=== PATIENT | female | born 1965 | race Caucasian/White ===

== ENCOUNTER 2021-11-12 12:48 | Inpatient (IN) | payer MEDICARE, OTHER ==
[2021-11-12] MEDS ORDERED: cefTRIAXone\\ROCEPHIN 2 GM VIAL IVPB SCH (17:45)
[2021-11-12] MEDS ORDERED: Albuterol 200 PUFF (6.7GM INHALER) INH PRN (18:15)
[2021-11-12] MEDS: Acetaminophen/Codeine 30-300mg Tablet PO SCH (19:50)
[2021-11-12] MEDS ORDERED: traZODone HCl 50 MG TAB PO SCH (21:00)
[2021-11-12] MEDS ORDERED: HumaLOG 300 UNITS/3 ML VIAL SC PRN ×2 (21:30)
[2021-11-12] MEDS ORDERED: Dextrose 5% in Water 1,000 ML IV PRN ×2 (21:30→23:00)
[2021-11-12] MEDS ORDERED: Dextrose 50% Abboject 50 ML SYRINGE IVP PRN ×2 (21:30→23:00)
[2021-11-12] MEDS: Atorvastatin Calcium 40 MG TAB PO SCH (22:00)
[2021-11-12] MEDS: Cyclobenzaprine 10 MG TAB PO PRN (22:00)
[2021-11-12] MEDS: Carvedilol 12.5 MG TAB PO SCH (22:00)
[2021-11-12] MEDS ORDERED: Acetaminophen/Codeine 30-300mg Tablet PO SCH (23:59)
[2021-11-13] MEDS: Acetaminophen/Codeine 30-300mg Tablet PO SCH ×2 (00:27→05:58)
[2021-11-13] MEDS ORDERED: Spironolactone 25 MG TAB PO SCH (08:00)
[2021-11-13] MEDS: Gabapentin 300 MG CAP PO SCH ×2 (08:41→20:47)
[2021-11-13] MEDS: FLUoxetine HCl 20 MG CAP PO SCH (08:41)
[2021-11-13] MEDS: Ezetimibe 10 MG TAB PO SCH (08:45)
[2021-11-13] MEDS: Spironolactone 25 MG TAB PO SCH (08:46)
[2021-11-13] MEDS: Aspirin Chewable 81 MG TAB PO SCH (08:46)
[2021-11-13] MEDS: Ferrous Sulfate 325 MG TAB PO SCH (08:46)
[2021-11-13] MEDS: Famotidine 20 MG TAB PO SCH ×2 (08:46→20:45)
[2021-11-13] MEDS: Clopidogrel Bisulfate 75 MG TAB PO SCH (08:46)
[2021-11-13] MEDS: hydrALAZINE 25 MG TAB PO SCH ×3 (08:46→20:45)
[2021-11-13] MEDS: Carvedilol 12.5 MG TAB PO SCH ×2 (08:48→20:45)
[2021-11-13] MEDS: EPOETIN ALFA-EPBX (ESRD) 10,000 UNIT/ML VIAL SC SCH (09:02)
[2021-11-13] MEDS: Lantus 1000 UNITS/10 ML VIAL SC SCH (09:02)
[2021-11-13 09:16] LABS: Hemoglobin 7.9 g/dL (12.0-16.0); Mean Corpuscular HGB CONC 32.2 g/dL (32.0-36.0); Mean Corpuscular Hemoglobin 31.1 pg (27.0-31.0); Mean Corpuscular Volume 96.7 fL (78.0-98.0); Mean Platelet Volume 7.9 fL (7.4-10.4); Platelet Count 271 thou/uL (130-400); RBC Distribution Width 15.4 % (11.5-14.5); Red Blood Cell (RBC) Count 2.53 mill/uL (4.20-5.40); White Blood Cell (WBC) Count 9.5 thou/uL (4.8-10.8)
[2021-11-13 09:19] LABS: Anion Gap 16 mmol/L (10-20); BUN (Urea Nitrogen) 29 mg/dL (9.8-20.1); Calc. Creatinine Clearance 68 mL/min (70-130); Calcium 8.9 mg/dL (7.8-10.44); Carbon Dioxide 22 mmol/L (22-29); Chloride 108 mmol/L (98-107); Glucose 120 mg/dL (70-105); Potassium 4.5 mmol/L (3.5-5.1); Sodium 141 mmol/L (136-145)
[2021-11-13] MEDS ORDERED: Morphine 4 MG/ML VIAL ONE (09:20)
[2021-11-13] MEDS ORDERED: Acetaminophen/Codeine 30-300mg Tablet PO PRN (10:16)
[2021-11-13] MEDS ORDERED: metroNIDAZOLE 250 MG TAB PO SCH (12:30)
[2021-11-13] MEDS: cefTRIAXone\\ROCEPHIN 2 GM in Sodium Chloride 0.9% 100 ML IVPB SCH (16:12)
[2021-11-13] MEDS: HYDROcodone/Acetaminophen 5/325 mg Tablet PO PRN ×2 (16:20→20:47)
[2021-11-13] MEDS: metroNIDAZOLE 250 MG TAB PO SCH (20:44)
[2021-11-13] MEDS: Atorvastatin Calcium 40 MG TAB PO SCH (20:45)
[2021-11-13] MEDS: traZODone HCl 50 MG TAB PO SCH (23:10)
[2021-11-13] MEDS: Clotrimazole 1% Cream 15 GM TUBE TOP SCH (23:45)
[2021-11-14] MEDS: metroNIDAZOLE 250 MG TAB PO SCH ×2 (08:28→21:02)
[2021-11-14] MEDS: Ferrous Sulfate 325 MG TAB PO SCH (08:28)
[2021-11-14] MEDS: Aspirin Chewable 81 MG TAB PO SCH (08:28)
[2021-11-14] MEDS: Spironolactone 25 MG TAB PO SCH (08:29)
[2021-11-14] MEDS: hydrALAZINE 25 MG TAB PO SCH ×3 (08:29→21:03)
[2021-11-14] MEDS: Gabapentin 300 MG CAP PO SCH ×2 (08:30→21:04)
[2021-11-14] MEDS: FLUoxetine HCl 20 MG CAP PO SCH (08:30)
[2021-11-14] MEDS: Carvedilol 12.5 MG TAB PO SCH ×2 (08:30→21:03)
[2021-11-14] MEDS: Lantus 1000 UNITS/10 ML VIAL SC SCH (08:31)
[2021-11-14] MEDS: Clotrimazole 1% Cream 15 GM TUBE TOP SCH ×2 (08:31→21:06)
[2021-11-14] MEDS: Ezetimibe 10 MG TAB PO SCH (08:31)
[2021-11-14] MEDS: Clopidogrel Bisulfate 75 MG TAB PO SCH (08:31)
[2021-11-14] MEDS: Famotidine 20 MG TAB PO SCH (08:31)
[2021-11-14] MEDS: HYDROcodone/Acetaminophen 5/325 mg Tablet PO PRN ×2 (14:38→21:23)
[2021-11-14] MEDS ORDERED: Loperamide HCl 2 MG CAP PO SCH (15:45)
[2021-11-14] MEDS: cefTRIAXone\\ROCEPHIN 2 GM in Sodium Chloride 0.9% 100 ML IVPB SCH (16:48)
[2021-11-14] MEDS: Atorvastatin Calcium 40 MG TAB PO SCH (21:03)
[2021-11-14] MEDS: traZODone HCl 50 MG TAB PO SCH (21:03)
[2021-11-15] MEDS: Lantus 1000 UNITS/10 ML VIAL SC SCH (09:04)
[2021-11-15] MEDS: Spironolactone 25 MG TAB PO SCH (09:04)
[2021-11-15] MEDS: FLUoxetine HCl 20 MG CAP PO SCH (09:04)
[2021-11-15] MEDS: Carvedilol 12.5 MG TAB PO SCH ×2 (09:05→20:22)
[2021-11-15] MEDS: Ezetimibe 10 MG TAB PO SCH (09:05)
[2021-11-15] MEDS: Famotidine 20 MG TAB PO SCH (09:05)
[2021-11-15] MEDS: metroNIDAZOLE 250 MG TAB PO SCH ×2 (09:05→20:21)
[2021-11-15] MEDS: hydrALAZINE 25 MG TAB PO SCH ×3 (09:05→20:20)
[2021-11-15] MEDS: Gabapentin 300 MG CAP PO SCH ×2 (09:06→20:20)
[2021-11-15] MEDS: Clopidogrel Bisulfate 75 MG TAB PO SCH (09:06)
[2021-11-15] MEDS: Aspirin Chewable 81 MG TAB PO SCH (09:06)
[2021-11-15] MEDS: Ferrous Sulfate 325 MG TAB PO SCH (09:06)
[2021-11-15] MEDS: Clotrimazole 1% Cream 15 GM TUBE TOP SCH ×2 (09:07→20:38)
[2021-11-15 09:31] LABS: Hemoglobin 8.7 g/dL (12.0-16.0); Mean Corpuscular HGB CONC 32.8 g/dL (32.0-36.0); Mean Corpuscular Hemoglobin 32.4 pg (27.0-31.0); Mean Corpuscular Volume 98.7 fL (78.0-98.0); Mean Platelet Volume 8.4 fL (7.4-10.4); Platelet Count 327 thou/uL (130-400); RBC Distribution Width 16.4 % (11.5-14.5); Red Blood Cell (RBC) Count 2.68 mill/uL (4.20-5.40); White Blood Cell (WBC) Count 10.2 thou/uL (4.8-10.8)
[2021-11-15 09:40] LABS: Anion Gap 17 mmol/L (10-20); BUN (Urea Nitrogen) 24 mg/dL (9.8-20.1); Calc. Creatinine Clearance 56 mL/min (70-130); Calcium 8.8 mg/dL (7.8-10.44); Carbon Dioxide 21 mmol/L (22-29); Chloride 108 mmol/L (98-107); Glucose 175 mg/dL (70-105); Potassium 4.7 mmol/L (3.5-5.1); Sodium 141 mmol/L (136-145)
[2021-11-15] MEDS: Morphine 4 MG/ML VIAL SLOW IVP PRN (10:55)
[2021-11-15] MEDS ORDERED: HumaLOG 300 UNITS/3 ML VIAL ONE (11:57)
[2021-11-15] MEDS: HumaLOG 300 UNITS/3 ML VIAL SC PRN ×2 (12:13→17:16)
[2021-11-15] MEDS: HYDROcodone/Acetaminophen 5/325 mg Tablet PO PRN ×2 (14:34→20:22)
[2021-11-15] MEDS: cefTRIAXone\\ROCEPHIN 2 GM in Sodium Chloride 0.9% 100 ML IVPB SCH (17:11)
[2021-11-15] MEDS: traZODone HCl 50 MG TAB PO SCH (20:20)
[2021-11-15] MEDS: Loperamide HCl 2 MG CAP PO PRN (20:23)
[2021-11-15] MEDS: Atorvastatin Calcium 40 MG TAB PO SCH (20:26)
[2021-11-16] MEDS: Ferrous Sulfate 325 MG TAB PO SCH (09:46)
[2021-11-16] MEDS: Ezetimibe 10 MG TAB PO SCH (09:48)
[2021-11-16] MEDS: Aspirin Chewable 81 MG TAB PO SCH (09:48)
[2021-11-16] MEDS: Spironolactone 25 MG TAB PO SCH (09:48)
[2021-11-16] MEDS: Carvedilol 12.5 MG TAB PO SCH ×2 (09:48→20:58)
[2021-11-16] MEDS: hydrALAZINE 25 MG TAB PO SCH ×3 (09:48→20:57)
[2021-11-16] MEDS: metroNIDAZOLE 250 MG TAB PO SCH ×2 (09:49→20:58)
[2021-11-16] MEDS: Gabapentin 300 MG CAP PO SCH ×2 (09:49→20:58)
[2021-11-16] MEDS: Clopidogrel Bisulfate 75 MG TAB PO SCH (09:50)
[2021-11-16] MEDS: Clotrimazole 1% Cream 15 GM TUBE TOP SCH ×2 (09:50→21:15)
[2021-11-16] MEDS: Famotidine 20 MG TAB PO SCH (09:50)
[2021-11-16] MEDS: Lantus 1000 UNITS/10 ML VIAL SC SCH (09:50)
[2021-11-16] MEDS: FLUoxetine HCl 20 MG CAP PO SCH (09:50)
[2021-11-16] MEDS: Loperamide HCl 2 MG CAP PO PRN ×2 (11:10→14:40)
[2021-11-16] MEDS: HumaLOG 300 UNITS/3 ML VIAL SC PRN (13:53)
[2021-11-16] MEDS: HYDROcodone/Acetaminophen 5/325 mg Tablet PO PRN ×2 (16:08→20:59)
[2021-11-16] MEDS ORDERED: traZODone HCl 50 MG TAB PO PRN (18:23)
[2021-11-16] MEDS: cefTRIAXone\\ROCEPHIN 2 GM in Sodium Chloride 0.9% 100 ML IVPB SCH (18:37)
[2021-11-16] MEDS: Atorvastatin Calcium 40 MG TAB PO SCH (20:57)
[2021-11-17] MEDS: HYDROcodone/Acetaminophen 5/325 mg Tablet PO PRN ×2 (03:54→21:27)
[2021-11-17] MEDS: Carvedilol 12.5 MG TAB PO SCH ×2 (08:05→21:21)
[2021-11-17] MEDS: Spironolactone 25 MG TAB PO SCH (08:05)
[2021-11-17] MEDS: Ferrous Sulfate 325 MG TAB PO SCH (08:05)
[2021-11-17] MEDS: Aspirin Chewable 81 MG TAB PO SCH (08:05)
[2021-11-17] MEDS: Clopidogrel Bisulfate 75 MG TAB PO SCH (08:06)
[2021-11-17] MEDS: Ezetimibe 10 MG TAB PO SCH (08:07)
[2021-11-17] MEDS: Clotrimazole 1% Cream 15 GM TUBE TOP SCH ×2 (08:07→21:32)
[2021-11-17] MEDS: Gabapentin 300 MG CAP PO SCH ×2 (08:07→21:22)
[2021-11-17] MEDS: Famotidine 20 MG TAB PO SCH (08:07)
[2021-11-17] MEDS: FLUoxetine HCl 20 MG CAP PO SCH (08:07)
[2021-11-17] MEDS: hydrALAZINE 25 MG TAB PO SCH ×3 (08:08→21:21)
[2021-11-17] MEDS: Lantus 1000 UNITS/10 ML VIAL SC SCH (08:08)
[2021-11-17] MEDS: metroNIDAZOLE 250 MG TAB PO SCH ×2 (08:10→21:21)
[2021-11-17] MEDS: Morphine 4 MG/ML VIAL SLOW IVP PRN (10:58)
[2021-11-17] MEDS: cefTRIAXone\\ROCEPHIN 2 GM in Sodium Chloride 0.9% 100 ML IVPB SCH (17:04)
[2021-11-17] MEDS: HumaLOG 300 UNITS/3 ML VIAL SC PRN (17:11)
[2021-11-17] MEDS: Atorvastatin Calcium 40 MG TAB PO SCH (21:20)
[2021-11-17] MEDS: Torsemide 20 MG TAB PO PRN (21:20)
[2021-11-17] MEDS: Loperamide HCl 2 MG CAP PO PRN (21:22)
[2021-11-17] MEDS ORDERED: Mag-Al Plus 1200 MG/1200 MG/120 MG/30 ML UDCUP PO PRN (23:17)
[2021-11-17] MEDS ORDERED: Ondansetron ODT 4 MG TAB PO PRN (23:18)
[2021-11-18] MEDS: HYDROcodone/Acetaminophen 5/325 mg Tablet PO PRN ×3 (01:47→21:33)
[2021-11-18] MEDS: Gabapentin 300 MG CAP PO SCH ×2 (08:18→21:34)
[2021-11-18] MEDS: Ferrous Sulfate 325 MG TAB PO SCH (08:18)
[2021-11-18] MEDS: metroNIDAZOLE 250 MG TAB PO SCH ×2 (08:18→21:31)
[2021-11-18] MEDS: hydrALAZINE 25 MG TAB PO SCH ×3 (08:19→21:31)
[2021-11-18] MEDS: Carvedilol 12.5 MG TAB PO SCH ×2 (08:19→21:34)
[2021-11-18] MEDS: Famotidine 20 MG TAB PO SCH (08:19)
[2021-11-18] MEDS: Ezetimibe 10 MG TAB PO SCH (08:19)
[2021-11-18] MEDS: Spironolactone 25 MG TAB PO SCH (08:19)
[2021-11-18] MEDS: FLUoxetine HCl 20 MG CAP PO SCH (08:19)
[2021-11-18] MEDS: Lantus 1000 UNITS/10 ML VIAL SC SCH (08:21)
[2021-11-18] MEDS: Aspirin Chewable 81 MG TAB PO SCH (08:22)
[2021-11-18] MEDS: Clotrimazole 1% Cream 15 GM TUBE TOP SCH ×2 (08:22→21:40)
[2021-11-18] MEDS: Clopidogrel Bisulfate 75 MG TAB PO SCH (08:22)
[2021-11-18] MEDS: HumaLOG 300 UNITS/3 ML VIAL SC PRN ×2 (12:09→17:34)
[2021-11-18] MEDS: cefTRIAXone\\ROCEPHIN 2 GM in Sodium Chloride 0.9% 100 ML IVPB SCH (16:47)
[2021-11-18] MEDS: Atorvastatin Calcium 40 MG TAB PO SCH (21:34)
[2021-11-18 23:13] LABS: SARS-CoV-2 PCR by NAA Not Detected (NotDetected)
[2021-11-19] MEDS: Carvedilol 12.5 MG TAB PO SCH ×2 (08:08→21:36)
[2021-11-19] MEDS: Clopidogrel Bisulfate 75 MG TAB PO SCH (08:08)
[2021-11-19] MEDS: Gabapentin 300 MG CAP PO SCH ×2 (08:08→21:37)
[2021-11-19] MEDS: Famotidine 20 MG TAB PO SCH (08:08)
[2021-11-19] MEDS: Spironolactone 25 MG TAB PO SCH (08:08)
[2021-11-19] MEDS: hydrALAZINE 25 MG TAB PO SCH ×3 (08:08→21:36)
[2021-11-19] MEDS: Ezetimibe 10 MG TAB PO SCH (08:08)
[2021-11-19] MEDS: metroNIDAZOLE 250 MG TAB PO SCH ×2 (08:09→21:36)
[2021-11-19] MEDS: Ferrous Sulfate 325 MG TAB PO SCH (08:10)
[2021-11-19] MEDS: FLUoxetine HCl 20 MG CAP PO SCH (08:10)
[2021-11-19] MEDS: Aspirin Chewable 81 MG TAB PO SCH (08:10)
[2021-11-19] MEDS: Lantus 1000 UNITS/10 ML VIAL SC SCH (08:11)
[2021-11-19] MEDS: Clotrimazole 1% Cream 15 GM TUBE TOP SCH ×2 (08:11→21:39)
[2021-11-19] MEDS: HumaLOG 300 UNITS/3 ML VIAL SC PRN ×2 (08:11→12:10)
[2021-11-19] MEDS: HYDROcodone/Acetaminophen 5/325 mg Tablet PO PRN ×2 (08:14→21:36)
[2021-11-19] MEDS: Ergocalciferol 1.25 MG(50,000 UNITS) CAP PO SCH (08:16)
[2021-11-19] MEDS: Torsemide 20 MG TAB PO PRN (08:25)
[2021-11-19] MEDS: cefTRIAXone\\ROCEPHIN 2 GM in Sodium Chloride 0.9% 100 ML IVPB SCH (17:01)
[2021-11-19] MEDS ORDERED: Morphine 4 MG/ML VIAL SLOW IVP PRN (17:38)
[2021-11-19] MEDS: traZODone HCl 50 MG TAB PO SCH (21:35)
[2021-11-19] MEDS: Atorvastatin Calcium 40 MG TAB PO SCH (21:36)
[2021-11-20] MEDS: HYDROcodone/Acetaminophen 5/325 mg Tablet PO PRN (05:53)
[2021-11-20] MEDS: Torsemide 20 MG TAB PO SCH ×2 (05:55→14:50)
[2021-11-20] MEDS: Clopidogrel Bisulfate 75 MG TAB PO SCH (08:37)
[2021-11-20] MEDS: Aspirin Chewable 81 MG TAB PO SCH (08:37)
[2021-11-20] MEDS: Carvedilol 12.5 MG TAB PO SCH ×2 (08:37→20:16)
[2021-11-20] MEDS: Spironolactone 25 MG TAB PO SCH (08:38)
[2021-11-20] MEDS: Gabapentin 300 MG CAP PO SCH ×2 (08:38→20:15)
[2021-11-20] MEDS: metroNIDAZOLE 250 MG TAB PO SCH ×2 (08:38→20:14)
[2021-11-20] MEDS: Ferrous Sulfate 325 MG TAB PO SCH (08:38)
[2021-11-20] MEDS: Ezetimibe 10 MG TAB PO SCH (08:39)
[2021-11-20] MEDS: FLUoxetine HCl 20 MG CAP PO SCH (08:39)
[2021-11-20] MEDS: hydrALAZINE 25 MG TAB PO SCH ×3 (08:39→20:16)
[2021-11-20] MEDS: Clotrimazole 1% Cream 15 GM TUBE TOP SCH ×2 (08:39→21:10)
[2021-11-20] MEDS: EPOETIN ALFA-EPBX (ESRD) 10,000 UNIT/ML VIAL SC SCH (08:40)
[2021-11-20] MEDS: Famotidine 20 MG TAB PO SCH (08:42)
[2021-11-20] MEDS: Lantus 1000 UNITS/10 ML VIAL SC SCH (08:43)
[2021-11-20] MEDS: Morphine 4 MG/ML VIAL SLOW IVP PRN (14:57)
[2021-11-20] MEDS: cefTRIAXone\\ROCEPHIN 2 GM in Sodium Chloride 0.9% 100 ML IVPB SCH (17:24)
[2021-11-20] MEDS: traZODone HCl 50 MG TAB PO SCH (20:17)
[2021-11-20] MEDS: Atorvastatin Calcium 40 MG TAB PO SCH (20:18)
[2021-11-21] MEDS: Torsemide 20 MG TAB PO SCH ×2 (05:56→15:21)
[2021-11-21] MEDS: FLUoxetine HCl 20 MG CAP PO SCH (08:34)
[2021-11-21] MEDS: metroNIDAZOLE 250 MG TAB PO SCH ×2 (08:34→20:56)
[2021-11-21] MEDS: Aspirin Chewable 81 MG TAB PO SCH (08:34)
[2021-11-21] MEDS: hydrALAZINE 25 MG TAB PO SCH ×3 (08:34→20:59)
[2021-11-21] MEDS: Ezetimibe 10 MG TAB PO SCH (08:34)
[2021-11-21] MEDS: Clopidogrel Bisulfate 75 MG TAB PO SCH (08:34)
[2021-11-21] MEDS: Ferrous Sulfate 325 MG TAB PO SCH (08:34)
[2021-11-21] MEDS: Gabapentin 300 MG CAP PO SCH ×2 (08:35→20:57)
[2021-11-21] MEDS: Famotidine 20 MG TAB PO SCH (08:35)
[2021-11-21] MEDS: Spironolactone 25 MG TAB PO SCH (08:35)
[2021-11-21] MEDS: Lantus 1000 UNITS/10 ML VIAL SC SCH (08:36)
[2021-11-21] MEDS: Carvedilol 12.5 MG TAB PO SCH ×2 (08:36→20:58)
[2021-11-21] MEDS: Clotrimazole 1% Cream 15 GM TUBE TOP SCH ×2 (08:37→21:00)
[2021-11-21] MEDS: HumaLOG 300 UNITS/3 ML VIAL SC PRN ×3 (08:37→21:04)
[2021-11-21] MEDS: cefTRIAXone\\ROCEPHIN 2 GM in Sodium Chloride 0.9% 100 ML IVPB SCH (17:17)
[2021-11-21] MEDS: HYDROcodone/Acetaminophen 5/325 mg Tablet PO PRN (20:02)
[2021-11-21] MEDS: Atorvastatin Calcium 40 MG TAB PO SCH (20:58)
[2021-11-21] MEDS: traZODone HCl 50 MG TAB PO SCH (20:59)
[2021-11-22] MEDS: Torsemide 20 MG TAB PO SCH ×2 (05:34→14:54)
[2021-11-22 05:49] LABS: Hemoglobin 7.8 g/dL (12.0-16.0); Mean Corpuscular HGB CONC 31.1 g/dL (32.0-36.0); Mean Corpuscular Hemoglobin 30.6 pg (27.0-31.0); Mean Corpuscular Volume 98.3 fL (78.0-98.0); Mean Platelet Volume 7.8 fL (7.4-10.4); Platelet Count 306 thou/uL (130-400); RBC Distribution Width 15.6 % (11.5-14.5); Red Blood Cell (RBC) Count 2.55 mill/uL (4.20-5.40); White Blood Cell (WBC) Count 7.2 thou/uL (4.8-10.8)
[2021-11-22 07:33] LABS: Anion Gap 16 mmol/L (10-20); BUN (Urea Nitrogen) 52 mg/dL (9.8-20.1); CRP (Inflammatory) 1.79 mg/dL (= or < 0.5); Calc. Creatinine Clearance 51 mL/min (70-130); Calcium 8.7 mg/dL (7.8-10.44); Carbon Dioxide 24 mmol/L (22-29); Chloride 104 mmol/L (98-107); Glucose 210 mg/dL (70-105); Potassium 4.7 mmol/L (3.5-5.1); Sodium 139 mmol/L (136-145)
[2021-11-22] MEDS: Lantus 1000 UNITS/10 ML VIAL SC SCH (08:25)
[2021-11-22] MEDS: Gabapentin 300 MG CAP PO SCH (08:26)
[2021-11-22] MEDS: Ezetimibe 10 MG TAB PO SCH (08:27)
[2021-11-22] MEDS: Ferrous Sulfate 325 MG TAB PO SCH (08:27)
[2021-11-22] MEDS: FLUoxetine HCl 20 MG CAP PO SCH (08:27)
[2021-11-22] MEDS: Aspirin Chewable 81 MG TAB PO SCH (08:27)
[2021-11-22] MEDS: Spironolactone 25 MG TAB PO SCH (08:28)
[2021-11-22] MEDS: Carvedilol 12.5 MG TAB PO SCH ×2 (08:28→20:48)
[2021-11-22] MEDS: Famotidine 20 MG TAB PO SCH (08:28)
[2021-11-22] MEDS: hydrALAZINE 25 MG TAB PO SCH ×3 (08:28→20:50)
[2021-11-22] MEDS: metroNIDAZOLE 250 MG TAB PO SCH ×2 (08:28→20:47)
[2021-11-22] MEDS: Clotrimazole 1% Cream 15 GM TUBE TOP SCH ×2 (08:29→20:53)
[2021-11-22] MEDS: Clopidogrel Bisulfate 75 MG TAB PO SCH (08:29)
[2021-11-22] MEDS: HYDROcodone/Acetaminophen 5/325 mg Tablet PO PRN ×3 (08:32→20:48)
[2021-11-22] MEDS ORDERED: EPOETIN ALFA-EPBX (ESRD) 40,000 UNIT/ML VIAL SC SCH (10:00)
[2021-11-22] MEDS: HumaLOG 300 UNITS/3 ML VIAL SC PRN (12:49)
[2021-11-22] MEDS: Morphine 4 MG/ML VIAL SLOW IVP PRN (14:55)
[2021-11-22] MEDS: cefTRIAXone\\ROCEPHIN 2 GM in Sodium Chloride 0.9% 100 ML IVPB SCH (16:53)
[2021-11-22] MEDS: Atorvastatin Calcium 40 MG TAB PO SCH (20:47)
[2021-11-22] MEDS: traZODone HCl 50 MG TAB PO SCH (20:49)
[2021-11-22] MEDS ORDERED: Gabapentin 300 MG CAP PO SCH (23:45)
[2021-11-23] MEDS: Gabapentin 300 MG CAP PO SCH ×3 (00:19→20:11)
[2021-11-23] MEDS: Torsemide 20 MG TAB PO SCH ×2 (05:58→13:51)
[2021-11-23] MEDS: Ferrous Sulfate 325 MG TAB PO SCH (08:07)
[2021-11-23] MEDS: Clopidogrel Bisulfate 75 MG TAB PO SCH (08:07)
[2021-11-23] MEDS: FLUoxetine HCl 20 MG CAP PO SCH (08:08)
[2021-11-23] MEDS: Famotidine 20 MG TAB PO SCH (08:08)
[2021-11-23] MEDS: Carvedilol 12.5 MG TAB PO SCH ×2 (08:08→20:12)
[2021-11-23] MEDS: Aspirin Chewable 81 MG TAB PO SCH (08:08)
[2021-11-23] MEDS: Spironolactone 25 MG TAB PO SCH (08:08)
[2021-11-23] MEDS: hydrALAZINE 25 MG TAB PO SCH ×3 (08:08→20:12)
[2021-11-23] MEDS: Lantus 1000 UNITS/10 ML VIAL SC SCH (08:09)
[2021-11-23] MEDS: Ezetimibe 10 MG TAB PO SCH (08:09)
[2021-11-23] MEDS: metroNIDAZOLE 250 MG TAB PO SCH ×2 (08:09→20:12)
[2021-11-23] MEDS: Clotrimazole 1% Cream 15 GM TUBE TOP SCH ×2 (08:10→20:10)
[2021-11-23] MEDS: HumaLOG 300 UNITS/3 ML VIAL SC PRN (11:55)
[2021-11-23] MEDS: cefTRIAXone\\ROCEPHIN 2 GM in Sodium Chloride 0.9% 100 ML IVPB SCH (16:53)
[2021-11-23] MEDS: Atorvastatin Calcium 40 MG TAB PO SCH (20:12)
[2021-11-23] MEDS: traZODone HCl 50 MG TAB PO SCH (20:13)
[2021-11-23] MEDS: HYDROcodone/Acetaminophen 5/325 mg Tablet PO PRN (21:18)
[2021-11-24] MEDS: HYDROcodone/Acetaminophen 5/325 mg Tablet PO PRN (01:30)
[2021-11-24] MEDS: Torsemide 20 MG TAB PO SCH ×2 (06:21→13:53)
[2021-11-24] MEDS: Clotrimazole 1% Cream 15 GM TUBE TOP SCH ×2 (08:21→20:34)
[2021-11-24] MEDS: Lantus 1000 UNITS/10 ML VIAL SC SCH (08:21)
[2021-11-24] MEDS: metroNIDAZOLE 250 MG TAB PO SCH ×2 (08:23→20:30)
[2021-11-24] MEDS: Ezetimibe 10 MG TAB PO SCH (08:23)
[2021-11-24] MEDS: Spironolactone 25 MG TAB PO SCH (08:23)
[2021-11-24] MEDS: Gabapentin 300 MG CAP PO SCH ×2 (08:23→20:31)
[2021-11-24] MEDS: hydrALAZINE 25 MG TAB PO SCH ×3 (08:24→20:30)
[2021-11-24] MEDS: Ferrous Sulfate 325 MG TAB PO SCH (08:24)
[2021-11-24] MEDS: FLUoxetine HCl 20 MG CAP PO SCH (08:24)
[2021-11-24] MEDS: Aspirin Chewable 81 MG TAB PO SCH (08:24)
[2021-11-24] MEDS: Carvedilol 12.5 MG TAB PO SCH ×2 (08:26→20:31)
[2021-11-24] MEDS: Clopidogrel Bisulfate 75 MG TAB PO SCH (08:26)
[2021-11-24] MEDS: Famotidine 20 MG TAB PO SCH (08:26)
[2021-11-24] MEDS: HumaLOG 300 UNITS/3 ML VIAL SC PRN ×2 (12:08→17:08)
[2021-11-24] MEDS: Morphine 4 MG/ML VIAL SLOW IVP PRN (13:43)
[2021-11-24] MEDS: cefTRIAXone\\ROCEPHIN 2 GM in Sodium Chloride 0.9% 100 ML IVPB SCH (17:51)
[2021-11-24] MEDS: Atorvastatin Calcium 40 MG TAB PO SCH (20:29)
[2021-11-24] MEDS: traZODone HCl 50 MG TAB PO SCH (20:31)
[2021-11-25] MEDS: Torsemide 20 MG TAB PO SCH ×2 (06:07→13:48)
[2021-11-25] MEDS: Ferrous Sulfate 325 MG TAB PO SCH (09:01)
[2021-11-25] MEDS: Spironolactone 25 MG TAB PO SCH (09:02)
[2021-11-25] MEDS: Famotidine 20 MG TAB PO SCH (09:02)
[2021-11-25] MEDS: Carvedilol 12.5 MG TAB PO SCH ×2 (09:02→20:28)
[2021-11-25] MEDS: Ezetimibe 10 MG TAB PO SCH (09:03)
[2021-11-25] MEDS: Clopidogrel Bisulfate 75 MG TAB PO SCH (09:03)
[2021-11-25] MEDS: FLUoxetine HCl 20 MG CAP PO SCH (09:03)
[2021-11-25] MEDS: metroNIDAZOLE 250 MG TAB PO SCH ×2 (09:03→20:27)
[2021-11-25] MEDS: hydrALAZINE 25 MG TAB PO SCH ×3 (09:04→20:28)
[2021-11-25] MEDS: Gabapentin 300 MG CAP PO SCH ×2 (09:10→20:28)
[2021-11-25] MEDS: Aspirin Chewable 81 MG TAB PO SCH (09:10)
[2021-11-25] MEDS: Lantus 1000 UNITS/10 ML VIAL SC SCH (09:13)
[2021-11-25] MEDS: Clotrimazole 1% Cream 15 GM TUBE TOP SCH ×2 (09:17→20:31)
[2021-11-25] MEDS: HYDROcodone/Acetaminophen 5/325 mg Tablet PO PRN ×2 (12:20→20:29)
[2021-11-25] MEDS: HumaLOG 300 UNITS/3 ML VIAL SC PRN ×2 (12:22→20:30)
[2021-11-25 16:37] LABS: SARS-CoV-2 PCR by NAA Not Detected (NotDetected)
[2021-11-25] MEDS: cefTRIAXone\\ROCEPHIN 2 GM in Sodium Chloride 0.9% 100 ML IVPB SCH (17:04)
[2021-11-25] MEDS: traZODone HCl 50 MG TAB PO SCH (20:27)
[2021-11-25] MEDS: Atorvastatin Calcium 40 MG TAB PO SCH (20:27)
[2021-11-26] MEDS: Torsemide 20 MG TAB PO SCH ×2 (05:41→13:44)
[2021-11-26] MEDS: Gabapentin 300 MG CAP PO SCH ×2 (08:59→21:18)
[2021-11-26] MEDS: FLUoxetine HCl 20 MG CAP PO SCH (08:59)
[2021-11-26] MEDS: Ezetimibe 10 MG TAB PO SCH (09:00)
[2021-11-26] MEDS: metroNIDAZOLE 250 MG TAB PO SCH ×2 (09:00→21:18)
[2021-11-26] MEDS: Clopidogrel Bisulfate 75 MG TAB PO SCH (09:00)
[2021-11-26] MEDS: Famotidine 20 MG TAB PO SCH (09:00)
[2021-11-26] MEDS: Ferrous Sulfate 325 MG TAB PO SCH (09:00)
[2021-11-26] MEDS: hydrALAZINE 25 MG TAB PO SCH ×3 (09:00→21:19)
[2021-11-26] MEDS: Carvedilol 12.5 MG TAB PO SCH ×2 (09:01→21:20)
[2021-11-26] MEDS: Lantus 1000 UNITS/10 ML VIAL SC SCH (09:01)
[2021-11-26] MEDS: Aspirin Chewable 81 MG TAB PO SCH (09:01)
[2021-11-26] MEDS: HumaLOG 300 UNITS/3 ML VIAL SC PRN ×4 (09:02→21:26)
[2021-11-26] MEDS: Clotrimazole 1% Cream 15 GM TUBE TOP SCH ×2 (09:02→21:24)
[2021-11-26] MEDS: Spironolactone 25 MG TAB PO SCH (09:03)
[2021-11-26] MEDS: Ergocalciferol 1.25 MG(50,000 UNITS) CAP PO SCH (09:10)
[2021-11-26] MEDS: Morphine 4 MG/ML VIAL SLOW IVP PRN (13:43)
[2021-11-26] MEDS: cefTRIAXone\\ROCEPHIN 2 GM in Sodium Chloride 0.9% 100 ML IVPB SCH (16:39)
[2021-11-26] MEDS: HYDROcodone/Acetaminophen 5/325 mg Tablet PO PRN (21:16)
[2021-11-26] MEDS: traZODone HCl 50 MG TAB PO SCH (21:19)
[2021-11-26] MEDS: Atorvastatin Calcium 40 MG TAB PO SCH (21:19)
[2021-11-27] MEDS: HYDROcodone/Acetaminophen 5/325 mg Tablet PO PRN ×2 (05:13→14:23)
[2021-11-27] MEDS: Torsemide 20 MG TAB PO SCH ×2 (05:14→14:08)
[2021-11-27] MEDS: Lantus 1000 UNITS/10 ML VIAL SC SCH (08:33)
[2021-11-27] MEDS: hydrALAZINE 25 MG TAB PO SCH ×3 (08:35→20:52)
[2021-11-27] MEDS: Gabapentin 300 MG CAP PO SCH ×2 (08:35→20:51)
[2021-11-27] MEDS: Carvedilol 12.5 MG TAB PO SCH ×2 (08:35→20:51)
[2021-11-27] MEDS: Ezetimibe 10 MG TAB PO SCH (08:35)
[2021-11-27] MEDS: Aspirin Chewable 81 MG TAB PO SCH (08:35)
[2021-11-27] MEDS: Clopidogrel Bisulfate 75 MG TAB PO SCH (08:35)
[2021-11-27] MEDS: FLUoxetine HCl 20 MG CAP PO SCH (08:35)
[2021-11-27] MEDS: Famotidine 20 MG TAB PO SCH (08:36)
[2021-11-27] MEDS: Ferrous Sulfate 325 MG TAB PO SCH (08:36)
[2021-11-27] MEDS: metroNIDAZOLE 250 MG TAB PO SCH ×2 (08:36→20:51)
[2021-11-27] MEDS: Spironolactone 25 MG TAB PO SCH (08:36)
[2021-11-27] MEDS: Clotrimazole 1% Cream 15 GM TUBE TOP SCH ×2 (08:37→20:53)
[2021-11-27] MEDS: HumaLOG 300 UNITS/3 ML VIAL SC PRN (11:50)
[2021-11-27] MEDS: cefTRIAXone\\ROCEPHIN 2 GM in Sodium Chloride 0.9% 100 ML IVPB SCH (17:12)
[2021-11-27] MEDS: Atorvastatin Calcium 40 MG TAB PO SCH (20:52)
[2021-11-27] MEDS: traZODone HCl 50 MG TAB PO SCH (20:52)
[2021-11-28] MEDS: HumaLOG 300 UNITS/3 ML VIAL SC PRN ×3 (01:28→11:48)
[2021-11-28] MEDS: Torsemide 20 MG TAB PO SCH ×2 (06:14→14:39)
[2021-11-28] MEDS: HYDROcodone/Acetaminophen 5/325 mg Tablet PO PRN ×2 (08:21→21:39)
[2021-11-28] MEDS: Gabapentin 300 MG CAP PO SCH ×2 (08:23→21:31)
[2021-11-28] MEDS: Spironolactone 25 MG TAB PO SCH (08:23)
[2021-11-28] MEDS: Clopidogrel Bisulfate 75 MG TAB PO SCH (08:23)
[2021-11-28] MEDS: Aspirin Chewable 81 MG TAB PO SCH (08:23)
[2021-11-28] MEDS: Ezetimibe 10 MG TAB PO SCH (08:23)
[2021-11-28] MEDS: FLUoxetine HCl 20 MG CAP PO SCH (08:23)
[2021-11-28] MEDS: metroNIDAZOLE 250 MG TAB PO SCH ×2 (08:24→21:31)
[2021-11-28] MEDS: Ferrous Sulfate 325 MG TAB PO SCH (08:24)
[2021-11-28] MEDS: Clotrimazole 1% Cream 15 GM TUBE TOP SCH ×2 (08:25→21:42)
[2021-11-28] MEDS: Lantus 1000 UNITS/10 ML VIAL SC SCH (08:27)
[2021-11-28] MEDS: Carvedilol 12.5 MG TAB PO SCH ×2 (08:30→21:29)
[2021-11-28] MEDS: Famotidine 20 MG TAB PO SCH (08:30)
[2021-11-28] MEDS: hydrALAZINE 25 MG TAB PO SCH ×3 (08:38→21:32)
[2021-11-28] MEDS: Morphine 4 MG/ML VIAL SLOW IVP PRN (14:37)
[2021-11-28] MEDS ORDERED: cefTRIAXone\\ROCEPHIN 2 GM VIAL ONE (17:08)
[2021-11-28] MEDS: cefTRIAXone\\ROCEPHIN 2 GM in Sodium Chloride 0.9% 100 ML IVPB SCH (17:21)
[2021-11-28] MEDS: Cyclobenzaprine 10 MG TAB PO PRN (17:44)
[2021-11-28] MEDS: Atorvastatin Calcium 40 MG TAB PO SCH (21:29)
[2021-11-28] MEDS: traZODone HCl 50 MG TAB PO SCH (21:30)
[2021-11-29] MEDS: Torsemide 20 MG TAB PO SCH (05:33)
[2021-11-29 07:45] LABS: Hemoglobin 8.1 g/dL (12.0-16.0); Mean Corpuscular HGB CONC 30.8 g/dL (32.0-36.0); Mean Corpuscular Hemoglobin 30.1 pg (27.0-31.0); Mean Corpuscular Volume 97.7 fL (78.0-98.0); Mean Platelet Volume 7.3 fL (7.4-10.4); Platelet Count 312 thou/uL (130-400); RBC Distribution Width 15.5 % (11.5-14.5); Red Blood Cell (RBC) Count 2.69 mill/uL (4.20-5.40); White Blood Cell (WBC) Count 8.5 thou/uL (4.8-10.8)
[2021-11-29 07:50] LABS: Anion Gap 17 mmol/L (10-20); BUN (Urea Nitrogen) 66 mg/dL (9.8-20.1); CRP (Inflammatory) 5.78 mg/dL (= or < 0.5); Calc. Creatinine Clearance 36 mL/min (70-130); Calcium 8.7 mg/dL (7.8-10.44); Carbon Dioxide 23 mmol/L (22-29); Chloride 102 mmol/L (98-107); Glucose 148 mg/dL (70-105); Potassium 4.3 mmol/L (3.5-5.1); Sodium 138 mmol/L (136-145)
[2021-11-29] MEDS: Gabapentin 300 MG CAP PO SCH ×2 (09:49→20:18)
[2021-11-29] MEDS: Clopidogrel Bisulfate 75 MG TAB PO SCH (09:49)
[2021-11-29] MEDS: Carvedilol 12.5 MG TAB PO SCH ×2 (09:49→20:19)
[2021-11-29] MEDS: Famotidine 20 MG TAB PO SCH (09:50)
[2021-11-29] MEDS: metroNIDAZOLE 250 MG TAB PO SCH ×2 (09:50→20:19)
[2021-11-29] MEDS: FLUoxetine HCl 20 MG CAP PO SCH (09:50)
[2021-11-29] MEDS: Ferrous Sulfate 325 MG TAB PO SCH (09:50)
[2021-11-29] MEDS: Aspirin Chewable 81 MG TAB PO SCH (09:50)
[2021-11-29] MEDS: Spironolactone 25 MG TAB PO SCH (09:50)
[2021-11-29] MEDS: Ezetimibe 10 MG TAB PO SCH (09:50)
[2021-11-29] MEDS: hydrALAZINE 25 MG TAB PO SCH ×3 (09:50→20:20)
[2021-11-29] MEDS: EPOETIN ALFA-EPBX (ESRD) 40,000 UNIT/ML VIAL SC SCH (09:52)
[2021-11-29] MEDS: Lantus 1000 UNITS/10 ML VIAL SC SCH (09:53)
[2021-11-29] MEDS: HumaLOG 300 UNITS/3 ML VIAL SC PRN ×3 (09:54→16:59)
[2021-11-29] MEDS: Clotrimazole 1% Cream 15 GM TUBE TOP SCH ×2 (12:05→20:22)
[2021-11-29] MEDS ORDERED: Torsemide 20 MG TAB PO PRN (13:19)
[2021-11-29] MEDS: cefTRIAXone\\ROCEPHIN 2 GM in Sodium Chloride 0.9% 100 ML IVPB SCH (16:52)
[2021-11-29] MEDS: traZODone HCl 50 MG TAB PO SCH (20:17)
[2021-11-29] MEDS: HYDROcodone/Acetaminophen 5/325 mg Tablet PO PRN (20:18)
[2021-11-29] MEDS: Atorvastatin Calcium 40 MG TAB PO SCH (20:19)
[2021-11-30] MEDS: FLUoxetine HCl 20 MG CAP PO SCH (10:26)
[2021-11-30] MEDS: Spironolactone 25 MG TAB PO SCH (10:26)
[2021-11-30] MEDS: Ferrous Sulfate 325 MG TAB PO SCH (10:26)
[2021-11-30] MEDS: Famotidine 20 MG TAB PO SCH (10:26)
[2021-11-30] MEDS: Ezetimibe 10 MG TAB PO SCH (10:27)
[2021-11-30] MEDS: Gabapentin 300 MG CAP PO SCH ×2 (10:27→21:39)
[2021-11-30] MEDS: Clopidogrel Bisulfate 75 MG TAB PO SCH (10:27)
[2021-11-30] MEDS: Aspirin Chewable 81 MG TAB PO SCH (10:27)
[2021-11-30] MEDS: hydrALAZINE 25 MG TAB PO SCH ×2 (10:28→16:23)
[2021-11-30] MEDS: Carvedilol 12.5 MG TAB PO SCH ×2 (10:32→21:38)
[2021-11-30] MEDS: Lantus 1000 UNITS/10 ML VIAL SC SCH (10:32)
[2021-11-30] MEDS: HumaLOG 300 UNITS/3 ML VIAL SC PRN (10:34)
[2021-11-30] MEDS: Clotrimazole 1% Cream 15 GM TUBE TOP SCH ×2 (10:35→21:40)
[2021-11-30] MEDS: HYDROcodone/Acetaminophen 5/325 mg Tablet PO PRN (10:41)
[2021-11-30] MEDS: Morphine 4 MG/ML VIAL SLOW IVP PRN (14:22)
[2021-11-30] MEDS: cefTRIAXone\\ROCEPHIN 2 GM in Sodium Chloride 0.9% 100 ML IVPB SCH (17:30)
[2021-11-30] MEDS: Atorvastatin Calcium 40 MG TAB PO SCH (21:39)
[2021-12-01] MEDS: Gabapentin 300 MG CAP PO SCH ×2 (08:29→20:39)
[2021-12-01] MEDS: Clopidogrel Bisulfate 75 MG TAB PO SCH (08:29)
[2021-12-01] MEDS: FLUoxetine HCl 20 MG CAP PO SCH (08:29)
[2021-12-01] MEDS: Ezetimibe 10 MG TAB PO SCH (08:29)
[2021-12-01] MEDS: Aspirin Chewable 81 MG TAB PO SCH (08:29)
[2021-12-01] MEDS: Famotidine 20 MG TAB PO SCH (08:29)
[2021-12-01] MEDS: Ferrous Sulfate 325 MG TAB PO SCH (08:30)
[2021-12-01] MEDS: Carvedilol 12.5 MG TAB PO SCH ×2 (08:30→20:40)
[2021-12-01] MEDS: Lantus 1000 UNITS/10 ML VIAL SC SCH (08:30)
[2021-12-01] MEDS: Spironolactone 25 MG TAB PO SCH (08:32)
[2021-12-01] MEDS: Clotrimazole 1% Cream 15 GM TUBE TOP SCH ×2 (08:35→20:40)
[2021-12-01] MEDS: cefTRIAXone\\ROCEPHIN 2 GM in Sodium Chloride 0.9% 100 ML IVPB SCH (16:51)
[2021-12-01] MEDS: HumaLOG 300 UNITS/3 ML VIAL SC PRN (16:57)
[2021-12-01] MEDS: Atorvastatin Calcium 40 MG TAB PO SCH (20:40)
[2021-12-02] MEDS: HYDROcodone/Acetaminophen 5/325 mg Tablet PO PRN (08:36)
[2021-12-02] MEDS: Gabapentin 300 MG CAP PO SCH ×2 (08:37→20:34)
[2021-12-02] MEDS: Aspirin Chewable 81 MG TAB PO SCH (08:37)
[2021-12-02] MEDS: Spironolactone 25 MG TAB PO SCH (08:37)
[2021-12-02] MEDS: Carvedilol 12.5 MG TAB PO SCH ×2 (08:37→20:34)
[2021-12-02] MEDS: Clopidogrel Bisulfate 75 MG TAB PO SCH (08:38)
[2021-12-02] MEDS: Ezetimibe 10 MG TAB PO SCH (08:38)
[2021-12-02] MEDS: FLUoxetine HCl 20 MG CAP PO SCH (08:39)
[2021-12-02] MEDS: Famotidine 20 MG TAB PO SCH (08:39)
[2021-12-02] MEDS: Clotrimazole 1% Cream 15 GM TUBE TOP SCH ×2 (08:39→20:38)
[2021-12-02] MEDS: HumaLOG 300 UNITS/3 ML VIAL SC PRN ×2 (08:40→12:00)
[2021-12-02] MEDS: Lantus 1000 UNITS/10 ML VIAL SC SCH (08:40)
[2021-12-02] MEDS: Ferrous Sulfate 325 MG TAB PO SCH (08:45)
[2021-12-02] MEDS: Morphine 4 MG/ML VIAL SLOW IVP PRN (11:59)
[2021-12-02 15:09] LABS: SARS-CoV-2 PCR by NAA Not Detected (NotDetected)
[2021-12-02] MEDS: cefTRIAXone\\ROCEPHIN 2 GM in Sodium Chloride 0.9% 100 ML IVPB SCH (16:17)
[2021-12-02] MEDS: Atorvastatin Calcium 40 MG TAB PO SCH (20:34)
[2021-12-03] MEDS: HYDROcodone/Acetaminophen 5/325 mg Tablet PO PRN ×2 (08:27→21:56)
[2021-12-03] MEDS: HumaLOG 300 UNITS/3 ML VIAL SC PRN ×3 (08:29→21:58)
[2021-12-03] MEDS: Lantus 1000 UNITS/10 ML VIAL SC SCH (08:29)
[2021-12-03] MEDS: Gabapentin 300 MG CAP PO SCH ×2 (08:29→21:55)
[2021-12-03] MEDS: Famotidine 20 MG TAB PO SCH (08:32)
[2021-12-03] MEDS: FLUoxetine HCl 20 MG CAP PO SCH (08:32)
[2021-12-03] MEDS: Carvedilol 12.5 MG TAB PO SCH ×2 (08:32→21:55)
[2021-12-03] MEDS: Ezetimibe 10 MG TAB PO SCH (08:33)
[2021-12-03] MEDS: Ferrous Sulfate 325 MG TAB PO SCH (08:33)
[2021-12-03] MEDS: Clopidogrel Bisulfate 75 MG TAB PO SCH (08:33)
[2021-12-03] MEDS: Aspirin Chewable 81 MG TAB PO SCH (08:33)
[2021-12-03] MEDS: Spironolactone 25 MG TAB PO SCH (08:33)
[2021-12-03] MEDS: Clotrimazole 1% Cream 15 GM TUBE TOP SCH ×2 (08:34→21:59)
[2021-12-03] MEDS: Ergocalciferol 1.25 MG(50,000 UNITS) CAP PO SCH (08:36)
[2021-12-03] MEDS: cefTRIAXone\\ROCEPHIN 2 GM in Sodium Chloride 0.9% 100 ML IVPB SCH (17:44)
[2021-12-03] MEDS: Atorvastatin Calcium 40 MG TAB PO SCH (21:55)
[2021-12-04] MEDS: Ferrous Sulfate 325 MG TAB PO SCH (08:41)
[2021-12-04] MEDS: Aspirin Chewable 81 MG TAB PO SCH (08:42)
[2021-12-04] MEDS: Gabapentin 300 MG CAP PO SCH ×2 (08:42→21:49)
[2021-12-04] MEDS: Ezetimibe 10 MG TAB PO SCH (08:42)
[2021-12-04] MEDS: Clopidogrel Bisulfate 75 MG TAB PO SCH (08:43)
[2021-12-04] MEDS: Spironolactone 25 MG TAB PO SCH (08:43)
[2021-12-04] MEDS: Famotidine 20 MG TAB PO SCH (08:43)
[2021-12-04] MEDS: FLUoxetine HCl 20 MG CAP PO SCH (08:43)
[2021-12-04] MEDS: Carvedilol 12.5 MG TAB PO SCH ×2 (08:53→21:53)
[2021-12-04] MEDS: Lantus 1000 UNITS/10 ML VIAL SC SCH (08:53)
[2021-12-04] MEDS: Clotrimazole 1% Cream 15 GM TUBE TOP SCH (08:56)
[2021-12-04] MEDS: cefTRIAXone\\ROCEPHIN 2 GM in Sodium Chloride 0.9% 100 ML IVPB SCH (17:29)
[2021-12-04] MEDS: Mupirocin 2% Ointment 22 GM Tube TOP SCH (21:48)
[2021-12-04] MEDS: Fluconazole 100 MG TAB PO SCH (21:49)
[2021-12-04] MEDS: Atorvastatin Calcium 40 MG TAB PO SCH (21:49)
[2021-12-05] MEDS: Morphine 4 MG/ML VIAL SLOW IVP PRN (03:01)
[2021-12-05] MEDS: Ezetimibe 10 MG TAB PO SCH (08:19)
[2021-12-05] MEDS: Aspirin Chewable 81 MG TAB PO SCH (08:19)
[2021-12-05] MEDS: FLUoxetine HCl 20 MG CAP PO SCH (08:19)
[2021-12-05] MEDS: Spironolactone 25 MG TAB PO SCH (08:19)
[2021-12-05] MEDS: Famotidine 20 MG TAB PO SCH (08:19)
[2021-12-05] MEDS: Ferrous Sulfate 325 MG TAB PO SCH (08:19)
[2021-12-05] MEDS: Clopidogrel Bisulfate 75 MG TAB PO SCH (08:19)
[2021-12-05] MEDS: Carvedilol 12.5 MG TAB PO SCH ×2 (08:19→21:23)
[2021-12-05] MEDS: Gabapentin 300 MG CAP PO SCH ×2 (08:20→21:23)
[2021-12-05] MEDS: Lantus 1000 UNITS/10 ML VIAL SC SCH (08:21)
[2021-12-05] MEDS: Mupirocin 2% Ointment 22 GM Tube TOP SCH ×3 (08:26→21:26)
[2021-12-05] MEDS: Nystatin Powder 15 GM BOT TOP SCH ×2 (08:26→21:26)
[2021-12-05] MEDS: HYDROcodone/Acetaminophen 5/325 mg Tablet PO PRN ×2 (12:34→21:24)
[2021-12-05] MEDS: HumaLOG 300 UNITS/3 ML VIAL SC PRN ×2 (12:36→21:35)
[2021-12-05] MEDS: cefTRIAXone\\ROCEPHIN 2 GM in Sodium Chloride 0.9% 100 ML IVPB SCH (17:14)
[2021-12-05] MEDS: Atorvastatin Calcium 40 MG TAB PO SCH (21:23)
[2021-12-05] MEDS: Fluconazole 100 MG TAB PO SCH (21:40)
[2021-12-06 05:21] LABS: Hemoglobin 8.2 g/dL (12.0-16.0); Mean Corpuscular HGB CONC 31.4 g/dL (32.0-36.0); Mean Corpuscular Hemoglobin 30.4 pg (27.0-31.0); Mean Corpuscular Volume 96.7 fL (78.0-98.0); Mean Platelet Volume 7.1 fL (7.4-10.4); Platelet Count 242 thou/uL (130-400); RBC Distribution Width 15.3 % (11.5-14.5); Red Blood Cell (RBC) Count 2.69 mill/uL (4.20-5.40); White Blood Cell (WBC) Count 9.8 thou/uL (4.8-10.8)
[2021-12-06 06:45] LABS: Anion Gap 17 mmol/L (10-20); BUN (Urea Nitrogen) 54 mg/dL (9.8-20.1); Calc. Creatinine Clearance 52 mL/min (70-130); Calcium 8.3 mg/dL (7.8-10.44); Carbon Dioxide 20 mmol/L (22-29); Chloride 107 mmol/L (98-107); Glucose 139 mg/dL (70-105); Potassium 4.8 mmol/L (3.5-5.1); Sodium 139 mmol/L (136-145)
[2021-12-06] MEDS: Nystatin Powder 15 GM BOT TOP SCH ×2 (08:18→21:03)
[2021-12-06] MEDS: HumaLOG 300 UNITS/3 ML VIAL SC PRN (08:19)
[2021-12-06] MEDS: Gabapentin 300 MG CAP PO SCH ×2 (08:19→21:01)
[2021-12-06] MEDS: Lantus 1000 UNITS/10 ML VIAL SC SCH (08:20)
[2021-12-06] MEDS: EPOETIN ALFA-EPBX (ESRD) 40,000 UNIT/ML VIAL SC SCH (08:20)
[2021-12-06] MEDS: Ezetimibe 10 MG TAB PO SCH (08:21)
[2021-12-06] MEDS: Spironolactone 25 MG TAB PO SCH (08:22)
[2021-12-06] MEDS: Carvedilol 12.5 MG TAB PO SCH ×2 (08:22→21:00)
[2021-12-06] MEDS: Clopidogrel Bisulfate 75 MG TAB PO SCH (08:22)
[2021-12-06] MEDS: HYDROcodone/Acetaminophen 5/325 mg Tablet PO PRN ×2 (08:22→20:59)
[2021-12-06] MEDS: Aspirin Chewable 81 MG TAB PO SCH (08:22)
[2021-12-06] MEDS: Ferrous Sulfate 325 MG TAB PO SCH (08:24)
[2021-12-06] MEDS: Mupirocin 2% Ointment 22 GM Tube TOP SCH ×3 (09:44→21:03)
[2021-12-06] MEDS: FLUoxetine HCl 20 MG CAP PO SCH (09:44)
[2021-12-06] MEDS: Famotidine 20 MG TAB PO SCH (09:44)
[2021-12-06] MEDS: Morphine 4 MG/ML VIAL SLOW IVP PRN (11:32)
[2021-12-06] MEDS: cefTRIAXone\\ROCEPHIN 2 GM in Sodium Chloride 0.9% 100 ML IVPB SCH (16:05)
[2021-12-06] MEDS: traZODone HCl 50 MG TAB PO PRN (21:00)
[2021-12-06] MEDS: Atorvastatin Calcium 40 MG TAB PO SCH (21:01)
[2021-12-06] MEDS: Fluconazole 100 MG TAB PO SCH (21:05)
[2021-12-07] MEDS: FLUoxetine HCl 20 MG CAP PO SCH (08:18)
[2021-12-07] MEDS: Carvedilol 12.5 MG TAB PO SCH ×2 (08:18→21:08)
[2021-12-07] MEDS: Clopidogrel Bisulfate 75 MG TAB PO SCH (08:18)
[2021-12-07] MEDS: Gabapentin 300 MG CAP PO SCH ×2 (08:18→21:07)
[2021-12-07] MEDS: Ezetimibe 10 MG TAB PO SCH (08:18)
[2021-12-07] MEDS: Aspirin Chewable 81 MG TAB PO SCH (08:18)
[2021-12-07] MEDS: Famotidine 20 MG TAB PO SCH (08:19)
[2021-12-07] MEDS: Spironolactone 25 MG TAB PO SCH (08:19)
[2021-12-07] MEDS: Ferrous Sulfate 325 MG TAB PO SCH (08:19)
[2021-12-07] MEDS: Lantus 1000 UNITS/10 ML VIAL SC SCH (08:20)
[2021-12-07] MEDS: Nystatin Powder 15 GM BOT TOP SCH ×2 (08:21→21:09)
[2021-12-07] MEDS: Mupirocin 2% Ointment 22 GM Tube TOP SCH ×3 (08:22→21:09)
[2021-12-07] MEDS: HYDROcodone/Acetaminophen 5/325 mg Tablet PO PRN ×2 (09:29→18:15)
[2021-12-07] MEDS: HumaLOG 300 UNITS/3 ML VIAL SC PRN ×3 (12:25→21:49)
[2021-12-07] MEDS: cefTRIAXone\\ROCEPHIN 2 GM in Sodium Chloride 0.9% 100 ML IVPB SCH (17:25)
[2021-12-07] MEDS: Atorvastatin Calcium 40 MG TAB PO SCH (21:07)
[2021-12-07] MEDS: traZODone HCl 50 MG TAB PO PRN (21:08)
[2021-12-07] MEDS: Acetaminophen 325 MG TAB PO PRN (21:37)
[2021-12-08] MEDS: HYDROcodone/Acetaminophen 5/325 mg Tablet PO PRN ×2 (04:13→21:32)
[2021-12-08] MEDS: Ferrous Sulfate 325 MG TAB PO SCH (07:52)
[2021-12-08] MEDS: Spironolactone 25 MG TAB PO SCH (07:52)
[2021-12-08] MEDS: Aspirin Chewable 81 MG TAB PO SCH (08:00)
[2021-12-08] MEDS: Ezetimibe 10 MG TAB PO SCH (08:00)
[2021-12-08] MEDS: Gabapentin 300 MG CAP PO SCH ×2 (08:00→21:29)
[2021-12-08] MEDS: FLUoxetine HCl 20 MG CAP PO SCH (08:01)
[2021-12-08] MEDS: Lantus 1000 UNITS/10 ML VIAL SC SCH (08:01)
[2021-12-08] MEDS: Carvedilol 12.5 MG TAB PO SCH ×2 (08:01→21:30)
[2021-12-08] MEDS: Clopidogrel Bisulfate 75 MG TAB PO SCH (08:01)
[2021-12-08] MEDS: Famotidine 20 MG TAB PO SCH (08:01)
[2021-12-08] MEDS: Mupirocin 2% Ointment 22 GM Tube TOP SCH ×3 (08:06→21:37)
[2021-12-08] MEDS: Nystatin Powder 15 GM BOT TOP SCH ×2 (08:06→21:37)
[2021-12-08] MEDS: Morphine 4 MG/ML VIAL SLOW IVP PRN (15:08)
[2021-12-08] MEDS: cefTRIAXone\\ROCEPHIN 2 GM in Sodium Chloride 0.9% 100 ML IVPB SCH (16:44)
[2021-12-08] MEDS: Atorvastatin Calcium 40 MG TAB PO SCH (21:29)
[2021-12-09] MEDS: Carvedilol 12.5 MG TAB PO SCH ×2 (07:37→20:26)
[2021-12-09] MEDS: Ferrous Sulfate 325 MG TAB PO SCH (07:37)
[2021-12-09] MEDS: HYDROcodone/Acetaminophen 5/325 mg Tablet PO PRN ×3 (07:37→20:26)
[2021-12-09] MEDS: Aspirin Chewable 81 MG TAB PO SCH (07:38)
[2021-12-09] MEDS: Famotidine 20 MG TAB PO SCH (07:38)
[2021-12-09] MEDS: Ezetimibe 10 MG TAB PO SCH (07:38)
[2021-12-09] MEDS: Gabapentin 300 MG CAP PO SCH ×2 (07:38→20:25)
[2021-12-09] MEDS: FLUoxetine HCl 20 MG CAP PO SCH (07:38)
[2021-12-09] MEDS: Spironolactone 25 MG TAB PO SCH (07:38)
[2021-12-09] MEDS: Lantus 1000 UNITS/10 ML VIAL SC SCH (07:39)
[2021-12-09] MEDS: Mupirocin 2% Ointment 22 GM Tube TOP SCH ×3 (07:39→20:28)
[2021-12-09] MEDS: Nystatin Powder 15 GM BOT TOP SCH ×2 (07:39→20:28)
[2021-12-09] MEDS: Clopidogrel Bisulfate 75 MG TAB PO SCH (07:39)
[2021-12-09] MEDS: HumaLOG 300 UNITS/3 ML VIAL SC PRN (12:52)
[2021-12-09 15:31] LABS: SARS-CoV-2 PCR by NAA Not Detected (NotDetected)
[2021-12-09] MEDS: cefTRIAXone\\ROCEPHIN 2 GM in Sodium Chloride 0.9% 100 ML IVPB SCH (16:31)
[2021-12-09] MEDS: Atorvastatin Calcium 40 MG TAB PO SCH (20:26)
[2021-12-10] MEDS: Spironolactone 25 MG TAB PO SCH (08:40)
[2021-12-10] MEDS: Ferrous Sulfate 325 MG TAB PO SCH (08:41)
[2021-12-10] MEDS: Clopidogrel Bisulfate 75 MG TAB PO SCH (08:41)
[2021-12-10] MEDS: Carvedilol 12.5 MG TAB PO SCH ×2 (08:41→21:05)
[2021-12-10] MEDS: Famotidine 20 MG TAB PO SCH (08:41)
[2021-12-10] MEDS: FLUoxetine HCl 20 MG CAP PO SCH (08:41)
[2021-12-10] MEDS: Ezetimibe 10 MG TAB PO SCH (08:41)
[2021-12-10] MEDS: Aspirin Chewable 81 MG TAB PO SCH (08:41)
[2021-12-10] MEDS: Lantus 1000 UNITS/10 ML VIAL SC SCH (08:42)
[2021-12-10] MEDS: Gabapentin 300 MG CAP PO SCH ×2 (08:42→21:04)
[2021-12-10] MEDS: Ergocalciferol 1.25 MG(50,000 UNITS) CAP PO SCH (08:48)
[2021-12-10] MEDS: Nystatin Powder 15 GM BOT TOP SCH ×2 (09:54→21:06)
[2021-12-10] MEDS: Mupirocin 2% Ointment 22 GM Tube TOP SCH ×3 (09:54→21:07)
[2021-12-10] MEDS: HumaLOG 300 UNITS/3 ML VIAL SC PRN (12:59)
[2021-12-10] MEDS: Morphine 4 MG/ML VIAL SLOW IVP PRN (13:00)
[2021-12-10] MEDS: cefTRIAXone\\ROCEPHIN 2 GM in Sodium Chloride 0.9% 100 ML IVPB SCH (17:27)
[2021-12-10] MEDS: Atorvastatin Calcium 40 MG TAB PO SCH (21:05)
[2021-12-10] MEDS: HYDROcodone/Acetaminophen 5/325 mg Tablet PO PRN (21:10)
[2021-12-11] MEDS: HYDROcodone/Acetaminophen 5/325 mg Tablet PO PRN ×3 (08:27→21:31)
[2021-12-11] MEDS: Lantus 1000 UNITS/10 ML VIAL SC SCH (08:59)
[2021-12-11] MEDS: Ezetimibe 10 MG TAB PO SCH (09:00)
[2021-12-11] MEDS: Carvedilol 12.5 MG TAB PO SCH ×2 (09:00→21:22)
[2021-12-11] MEDS: Gabapentin 300 MG CAP PO SCH ×2 (09:00→21:22)
[2021-12-11] MEDS: Famotidine 20 MG TAB PO SCH (09:01)
[2021-12-11] MEDS: FLUoxetine HCl 20 MG CAP PO SCH (09:01)
[2021-12-11] MEDS: Spironolactone 25 MG TAB PO SCH (09:01)
[2021-12-11] MEDS: Aspirin Chewable 81 MG TAB PO SCH (09:01)
[2021-12-11] MEDS: Ferrous Sulfate 325 MG TAB PO SCH (09:01)
[2021-12-11] MEDS: Clopidogrel Bisulfate 75 MG TAB PO SCH (09:02)
[2021-12-11] MEDS: Nystatin Powder 15 GM BOT TOP SCH ×2 (09:02→21:24)
[2021-12-11] MEDS: Mupirocin 2% Ointment 22 GM Tube TOP SCH ×3 (09:02→21:24)
[2021-12-11] MEDS: cefTRIAXone\\ROCEPHIN 2 GM in Sodium Chloride 0.9% 100 ML IVPB SCH (17:04)
[2021-12-11] MEDS: Atorvastatin Calcium 40 MG TAB PO SCH (21:23)
[2021-12-12] MEDS: HYDROcodone/Acetaminophen 5/325 mg Tablet PO PRN ×2 (08:27→21:57)
[2021-12-12] MEDS: Spironolactone 25 MG TAB PO SCH (08:30)
[2021-12-12] MEDS: Ferrous Sulfate 325 MG TAB PO SCH (08:30)
[2021-12-12] MEDS: FLUoxetine HCl 20 MG CAP PO SCH (08:30)
[2021-12-12] MEDS: Ezetimibe 10 MG TAB PO SCH (08:30)
[2021-12-12] MEDS: Famotidine 20 MG TAB PO SCH (08:30)
[2021-12-12] MEDS: Carvedilol 12.5 MG TAB PO SCH ×2 (08:30→21:57)
[2021-12-12] MEDS: Aspirin Chewable 81 MG TAB PO SCH (08:31)
[2021-12-12] MEDS: Gabapentin 300 MG CAP PO SCH ×2 (08:31→21:57)
[2021-12-12] MEDS: Clopidogrel Bisulfate 75 MG TAB PO SCH (08:31)
[2021-12-12] MEDS: Lantus 1000 UNITS/10 ML VIAL SC SCH (08:32)
[2021-12-12] MEDS: Nystatin Powder 15 GM BOT TOP SCH ×2 (08:32→21:59)
[2021-12-12] MEDS: Mupirocin 2% Ointment 22 GM Tube TOP SCH ×3 (08:32→21:58)
[2021-12-12] MEDS: Morphine 4 MG/ML VIAL SLOW IVP PRN (11:15)
[2021-12-12] MEDS: HumaLOG 300 UNITS/3 ML VIAL SC PRN ×2 (12:06→16:34)
[2021-12-12] MEDS: cefTRIAXone\\ROCEPHIN 2 GM in Sodium Chloride 0.9% 100 ML IVPB SCH (16:34)
[2021-12-12] MEDS: Atorvastatin Calcium 40 MG TAB PO SCH (21:57)
[2021-12-13] MEDS: EPOETIN ALFA-EPBX (ESRD) 40,000 UNIT/ML VIAL SC SCH (09:06)
[2021-12-13] MEDS: Gabapentin 300 MG CAP PO SCH ×2 (09:08→21:05)
[2021-12-13] MEDS: Spironolactone 25 MG TAB PO SCH (09:08)
[2021-12-13] MEDS: Aspirin Chewable 81 MG TAB PO SCH (09:08)
[2021-12-13] MEDS: Famotidine 20 MG TAB PO SCH (09:09)
[2021-12-13] MEDS: Clopidogrel Bisulfate 75 MG TAB PO SCH (09:09)
[2021-12-13] MEDS: Lantus 1000 UNITS/10 ML VIAL SC SCH (09:09)
[2021-12-13] MEDS: Ezetimibe 10 MG TAB PO SCH (09:09)
[2021-12-13] MEDS: Ferrous Sulfate 325 MG TAB PO SCH (09:09)
[2021-12-13] MEDS: FLUoxetine HCl 20 MG CAP PO SCH (09:09)
[2021-12-13] MEDS: Mupirocin 2% Ointment 22 GM Tube TOP SCH ×3 (09:10→21:07)
[2021-12-13] MEDS: Carvedilol 12.5 MG TAB PO SCH ×2 (09:10→21:05)
[2021-12-13] MEDS: Nystatin Powder 15 GM BOT TOP SCH ×2 (09:10→21:07)
[2021-12-13] MEDS: HumaLOG 300 UNITS/3 ML VIAL SC PRN (12:08)
[2021-12-13 13:59] LABS: Hemoglobin 10.1 g/dL (12.0-16.0); Mean Corpuscular HGB CONC 29.9 g/dL (32.0-36.0); Mean Corpuscular Hemoglobin 29.5 pg (27.0-31.0); Mean Corpuscular Volume 98.7 fL (78.0-98.0); Mean Platelet Volume 7.9 fL (7.4-10.4); Platelet Count 233 thou/uL (130-400); RBC Distribution Width 15.9 % (11.5-14.5); Red Blood Cell (RBC) Count 3.41 mill/uL (4.20-5.40); White Blood Cell (WBC) Count 9.5 thou/uL (4.8-10.8)
[2021-12-13 14:11] LABS: Anion Gap 16 mmol/L (10-20); BUN (Urea Nitrogen) 52 mg/dL (9.8-20.1); CRP (Inflammatory) 4.38 mg/dL (= or < 0.5); Calc. Creatinine Clearance 53 mL/min (70-130); Calcium 9.5 mg/dL (7.8-10.44); Carbon Dioxide 23 mmol/L (22-29); Chloride 106 mmol/L (98-107); Glucose 108 mg/dL (70-105); Potassium 5.2 mmol/L (3.5-5.1); Sodium 140 mmol/L (136-145)
[2021-12-13 15:59] VITALS: BMI 35.9
[2021-12-13] MEDS: cefTRIAXone\\ROCEPHIN 2 GM in Sodium Chloride 0.9% 100 ML IVPB SCH (16:36)
[2021-12-13] MEDS: HYDROcodone/Acetaminophen 5/325 mg Tablet PO PRN (20:25)
[2021-12-13] MEDS: Atorvastatin Calcium 40 MG TAB PO SCH (21:05)
[2021-12-13] MEDS: traZODone HCl 50 MG TAB PO PRN (21:06)
[2021-12-13] MEDS: Cyclobenzaprine 10 MG TAB PO PRN (22:46)
[2021-12-14 08:19] LABS: Potassium 4.7 mmol/L (3.5-5.1)
[2021-12-14] MEDS: Lantus 1000 UNITS/10 ML VIAL SC SCH (09:04)
[2021-12-14] MEDS: Gabapentin 300 MG CAP PO SCH ×2 (09:05→21:55)
[2021-12-14] MEDS: Carvedilol 12.5 MG TAB PO SCH ×2 (09:06→21:55)
[2021-12-14] MEDS: Spironolactone 25 MG TAB PO SCH (09:06)
[2021-12-14] MEDS: Famotidine 20 MG TAB PO SCH (09:06)
[2021-12-14] MEDS: Ezetimibe 10 MG TAB PO SCH (09:06)
[2021-12-14] MEDS: Aspirin Chewable 81 MG TAB PO SCH (09:06)
[2021-12-14] MEDS: Clopidogrel Bisulfate 75 MG TAB PO SCH (09:07)
[2021-12-14] MEDS: Nystatin Powder 15 GM BOT TOP SCH ×2 (09:07→21:58)
[2021-12-14] MEDS: Mupirocin 2% Ointment 22 GM Tube TOP SCH ×3 (09:07→21:57)
[2021-12-14] MEDS: Ferrous Sulfate 325 MG TAB PO SCH (09:09)
[2021-12-14] MEDS: FLUoxetine HCl 20 MG CAP PO SCH (09:12)
[2021-12-14] MEDS: HumaLOG 300 UNITS/3 ML VIAL SC PRN (11:57)
[2021-12-14] MEDS: Morphine 4 MG/ML VIAL SLOW IVP PRN (13:42)
[2021-12-14] MEDS: Atorvastatin Calcium 40 MG TAB PO SCH (21:56)
[2021-12-14] MEDS: Acetaminophen 325 MG TAB PO PRN (21:56)
[2021-12-15] MEDS: Aspirin Chewable 81 MG TAB PO SCH (08:39)
[2021-12-15] MEDS: FLUoxetine HCl 20 MG CAP PO SCH (08:40)
[2021-12-15] MEDS: Ferrous Sulfate 325 MG TAB PO SCH (08:40)
[2021-12-15] MEDS: Spironolactone 25 MG TAB PO SCH (08:40)
[2021-12-15] MEDS: Ezetimibe 10 MG TAB PO SCH (08:40)
[2021-12-15] MEDS: Famotidine 20 MG TAB PO SCH (08:40)
[2021-12-15] MEDS: Clopidogrel Bisulfate 75 MG TAB PO SCH (08:40)
[2021-12-15] MEDS: Gabapentin 300 MG CAP PO SCH ×2 (08:41→21:40)
[2021-12-15] MEDS: Carvedilol 12.5 MG TAB PO SCH ×2 (08:41→21:40)
[2021-12-15] MEDS: Lantus 1000 UNITS/10 ML VIAL SC SCH (08:41)
[2021-12-15] MEDS: Nystatin Powder 15 GM BOT TOP SCH ×2 (08:42→21:44)
[2021-12-15] MEDS: Mupirocin 2% Ointment 22 GM Tube TOP SCH ×3 (08:43→21:44)
[2021-12-15] MEDS: HumaLOG 300 UNITS/3 ML VIAL SC PRN ×2 (12:33→21:39)
[2021-12-15] MEDS: HYDROcodone/Acetaminophen 5/325 mg Tablet PO PRN (17:01)
[2021-12-15] MEDS: Atorvastatin Calcium 40 MG TAB PO SCH (21:40)
[2021-12-15] MEDS: Acetaminophen 325 MG TAB PO PRN (21:41)
[2021-12-16] MEDS: Lantus 1000 UNITS/10 ML VIAL SC SCH (08:46)
[2021-12-16] MEDS: Ezetimibe 10 MG TAB PO SCH (08:46)
[2021-12-16] MEDS: Clopidogrel Bisulfate 75 MG TAB PO SCH (08:46)
[2021-12-16] MEDS: Aspirin Chewable 81 MG TAB PO SCH (08:46)
[2021-12-16] MEDS: Famotidine 20 MG TAB PO SCH (08:46)
[2021-12-16] MEDS: Carvedilol 12.5 MG TAB PO SCH (08:46)
[2021-12-16] MEDS: Spironolactone 25 MG TAB PO SCH (08:46)
[2021-12-16] MEDS: FLUoxetine HCl 20 MG CAP PO SCH (08:46)
[2021-12-16] MEDS: Gabapentin 300 MG CAP PO SCH (08:47)
[2021-12-16] MEDS: Ferrous Sulfate 325 MG TAB PO SCH (08:47)
[2021-12-16] MEDS: Mupirocin 2% Ointment 22 GM Tube TOP SCH (08:48)
[2021-12-16] MEDS: Nystatin Powder 15 GM BOT TOP SCH (08:48)
[2021-12-16] MEDS ORDERED: CEFADROXIL 500 MG PO SCH (09:00)
[2021-12-16] MEDS: HYDROcodone/Acetaminophen 5/325 mg Tablet PO PRN (09:10)
[2021-12-16 10:08] VITALS: BP 115/73; TEMP 97.5
[2021-12-17] MEDS ORDERED: CEFADROXIL 500 MG PO SCH (09:00)
[2021-12-20] MEDS ORDERED: EPOETIN ALFA-EPBX (ESRD) 10,000 UNIT/ML VIAL SC SCH (09:00)
== END 2021-12-16 11:15 | disposition home or self-care (01) | DRG 638 ==
LOC: MADMS 18:02
PROVIDERS: ADMIT Family Medicine; ATTEND Family Medicine
PROC: 0J9C3ZZ Drainage of Pelvic Region Subcutaneous Tissue and Fascia, Percutaneous Approach (ICD-10-PCS; principal; 2021-12-09)
PROC: 0J9P3ZZ Drainage of Left Lower Leg Subcutaneous Tissue and Fascia, Percutaneous Approach (ICD-10-PCS; 2021-12-09)
DX: E11.621 Type 2 diabetes mellitus with foot ulcer (principal); I50.22 Chronic systolic (congestive) heart failure; M86.8X7 Other osteomyelitis, ankle and foot; L97.526 Non-pressure chronic ulcer of other part of left foot with bone involvement without evidence of necrosis; I13.0 Hypertensive heart and chronic kidney disease with heart failure and stage 1 through stage 4 chronic kidney disease, or unspecified chronic kidney disease; T81.49XA Infection following a procedure, other surgical site, initial encounter; L02.416 Cutaneous abscess of left lower limb; L02.214 Cutaneous abscess of groin; R53.81 Other malaise; E11.69 Type 2 diabetes mellitus with other specified complication; E78.5 Hyperlipidemia, unspecified; E11.51 Type 2 diabetes mellitus with diabetic peripheral angiopathy without gangrene; I25.10 Atherosclerotic heart disease of native coronary artery without angina pectoris; E66.9 Obesity, unspecified; N18.30 Chronic kidney disease, stage 3 unspecified; D63.1 Anemia in chronic kidney disease; E11.22 Type 2 diabetes mellitus with diabetic chronic kidney disease; E88.09 Other disorders of plasma-protein metabolism, not elsewhere classified; L30.8 Other specified dermatitis; F51.04 Psychophysiologic insomnia; I47.9 Paroxysmal tachycardia, unspecified; R19.7 Diarrhea, unspecified; F41.9 Anxiety disorder, unspecified; F32.A Depression, unspecified; Z20.822 Contact with and (suspected) exposure to COVID-19; Z88.8 Allergy status to other drugs, medicaments and biological substances; Z79.4 Long term (current) use of insulin; Z79.899 Other long term (current) drug therapy; Z95.1 Presence of aortocoronary bypass graft; Z95.810 Presence of automatic (implantable) cardiac defibrillator; Z79.51 Long term (current) use of inhaled steroids; Z79.82 Long term (current) use of aspirin; Z89.422 Acquired absence of other left toe(s); Z98.890 Other specified postprocedural states; Z68.35 Body mass index [BMI] 35.0-35.9, adult
CPT/HCPCS: 36415; 36416; 80048; 82728; 84132; 85027; 85652; 86140; J0696; J1815; J2270; J3490; Q5105; U0003; U0005

== ENCOUNTER 2022-01-22 12:22 | Outpatient (CLI) | payer MEDICARE ==
[2022-01-22 13:12] LABS: Anion Gap 13 mmol/L (10-20); BUN (Urea Nitrogen) 31 mg/dL (9.8-20.1); Calc. Creatinine Clearance 0 mL/min (70-130); Calcium 8.8 mg/dL (7.8-10.44); Carbon Dioxide 22 mmol/L (22-29); Chloride 109 mmol/L (98-107); Estimated GFR 32; Glucose 182 mg/dL (70-105); Potassium 6.3 mmol/L (3.5-5.1); Sodium 138 mmol/L (136-145)
== END 2022-01-22 12:23 | disposition home or self-care (01) ==
LOC: MADLAB 12:22
PROVIDERS: ATTEND Family Medicine
DX: E87.5 Hyperkalemia (principal)
CPT/HCPCS: 36415; 80048

== ENCOUNTER 2022-01-25 12:12 | Outpatient (CLI) | payer MEDICARE ==
[2022-01-25 12:43] LABS: Anion Gap 15 mmol/L (10-20); BUN (Urea Nitrogen) 26 mg/dL (9.8-20.1); Calc. Creatinine Clearance 0 mL/min (70-130); Calcium 8.5 mg/dL (7.8-10.44); Carbon Dioxide 21 mmol/L (22-29); Chloride 107 mmol/L (98-107); Estimated GFR 35; Glucose 82 mg/dL (70-105); Potassium 4.7 mmol/L (3.5-5.1); Sodium 138 mmol/L (136-145)
== END 2022-01-25 12:13 | disposition home or self-care (01) ==
LOC: MADLAB 12:12
PROVIDERS: ATTEND Family Medicine
DX: E87.5 Hyperkalemia (principal)
CPT/HCPCS: 36415; 80048